=== PATIENT | female | born 1960 | race Caucasian/White ===

== ENCOUNTER 2021-11-20 12:26 | Day surgery (SDC) | payer OTHER, SELFPAY ==
--- NOTE | 2021-11-19 12:57 | HO.ANESPROP2 ---
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 Surgical History Surgical History (Updated 11/19/21 @ 12:54 by Pushpa Best RN) H/O colonoscopy H/O cone biopsy of cervix H/O dilation and curettage H/O tubal ligation History of delivery S/P breast lumpectomy Social History Social History Patient Tobacco Use Status: Former Tobacco user Quit Date: 2018 Tobacco use type: Cigarette Years Smoked: 30 Smoked in Last 30 Days: No Use of substances other than those prescribed or required for medical reasons: Yes Substance Use Frequency: Daily Are you DNR?: No Advance Directives: No Advance Directives Information Provided: Yes Meds Allergies Allergy/AdvReac Type Severity Reaction Status Date / Time No Known Allergies Allergy Verified 11/20/21 12:33 Home Medications Medication Instructions Recorded Confirmed Last Taken Type atorvastatin 10 mg tablet 1 tab PO DAILY 11/19/21 11/19/21 Unknown History clindamycin phosphate 1 % topical TOPICAL BID 11/19/21 11/19/21 Unknown History gel Exam Exam Date and Time: November 19, 2021 1257 Assessment and Plan Assessment Anesthesia Assessment: Chart Reviewed Documented by User: Jose Nair MD 11/20/21 15:06 [facility] Past Medical History Medical History (Updated 11/19/21 @ 12:50 by Pushpa Best RN) Anemia Benign neoplasm of colon Breast cancer, right COPD (chronic obstructive pulmonary disease) Glaucoma suspect Kidney stones 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 Family History Family history of problems with anesthesia: No Surgical History Surgical History (Updated 11/19/21 @ 12:54 by Pushpa Best RN) H/O colonoscopy H/O cone biopsy of cervix H/O dilation and curettage H/O tubal ligation History of delivery S/P breast lumpectomy History of Problems with Anesthesia: No Social History Social History Patient Tobacco Use Status: Former Tobacco user Quit Date: 2018 Tobacco use type: Cigarette Years Smoked: 30 Smoked in Last 30 Days: No Use of substances other than those prescribed or required for medical reasons: Yes Substance Use Frequency: Daily Are you DNR?: No Advance Directives: No Advance Directives Information Provided: Yes Meds Allergies Allergy/AdvReac Type Severity Reaction Status Date / Time No Known Allergies Allergy Verified 11/20/21 12:33 Home Medications Medication Instructions Recorded Confirmed Last Taken Type atorvastatin 10 mg tablet 1 tab PO DAILY 11/19/21 11/19/21 Unknown History clindamycin phosphate 1 % topical TOPICAL BID 11/19/21 11/19/21 Unknown History gel Exam Airway Mallampati Class: I TM Dist: >3cm Neck ROM: Full Loose/Missing/Broken Teeth: No Heart: ok Lungs: ok Assessment and Plan Final Anesthetic Review Family History of Problems with Anesthesia: No History of Problems with Anesthesia: No NPO: Yes ASA Class: II Final Preanesthetic Review: No Changes in Pt Med Stat, Meds/Allgs Chart Reviewed, Consent Obtained/Reviewed and Anes Risks/Benef Reviewed Patient Risk: Intermediate Procedure Risk: Intermediate Anesthetic Plan Anesthetic Plan: GA and Agree w/ Assess. and Plan Disposition: Standard PACU
[2021-11-20] VITALS (8 sets, daily range): BP systolic 121–145; BP diastolic 67–82; PULSE 71–91; RESP 16–20; TEMP 36.2–36.9; O2SAT 94–100; BMI 24.0
[2021-11-20] MEDS: Lactated Ringers 1,000 ML 100 ML IVCONT (13:10)
--- NOTE | 2021-11-20 14:34 | MHC.SHP ---
Pre-Procedural Eval Section A Date of Service: 11/20/21 The patient is an INPATIENT: No The History & Physical has been completed within 30 days and I have reviewed it.: Yes Section B Chief Complaint: abnormal lung findings Allergies: Allergies Allergy/AdvReac Type Severity Reaction Status Date / Time No Known Allergies Allergy Verified 11/20/21 12:33 Plan I have reviewed the history and physical and performed a pertinent physical examination on my patient. No changes have occurred unless specified. plan is for endobronchial ultrasound with biopsy of mediastinal lymph nodes for lung cancer staging
--- NOTE | 2021-11-20 15:53 | W.PM.OPN ---
Operative Note Operative Note Date of Service: 11/20/21 Narrative: Preoperative diagnosis: central left lower lobe pulmonary nodule Postoperative diagnosis: Same Operation: Endobronchial ultrasound with biopsy of multiple lymph node stations, bronchoscopy with bronchoalveolar lavage Surgeon: Magnolia Walsh MD Anesthesia: General Specimens: right paratracheal, subcarinal, and left paratrachealMediastinal lymph nodes , bronchoalveolar lavage left lower lobe EBL: less than 1 cc Operation in detail: The patient was brought to the operating room, placed supine on the operative table, anesthesia monitor devices were placed, and the patient was intubated with an 8 and half endotracheal tube. A time-out was performed confirming the correct patient, site, and procedure. The Olympus endobronchial ultrasound scope was then inserted through the endotracheal tube and the airways were visualized down to the subsegmental level bilaterally. Findings are there were no endobronchial lesions and no secretions. The ultrasound was then applied to all 3 stations visualizing the lymph nodes with the findings normal appearing less than 1 cm lymph nodes in all stations visualized. First, we visualized with ultrasound the subcarinal lymph nodes in using a 19 gauge Olympus biopsy needle 3 passes were taking and sent for on-site evaluation. This process was then repeated with right paratracheal and left paratracheal lymph nodes. Findings are adequate sampling at least 1 passed from each of these lymph nodes station no evidence of malignancy. final path pending. The bronchoscope was then switched out in the left lower lobe bronchus was visualized more closely down subsegmental a in the scope was wedged in the segmental bronchus medial basilar and 120 cc of saline washings were taken and sent for culture, fungus, AFB, and cytology. Hemostasis was then assured in the bronchoscope was removed. The patient tolerated the procedure well, was extubated in the operating room, and brought to the PACU in stable condition.
== END 2021-11-20 17:34 | disposition home or self-care (01) ==
PROVIDERS: PCP Pediatrics; Visit Provider Surgery
PROC: (CPT 31653; principal; 2021-11-20 14:10)
DX: R91.8 Other nonspecific abnormal finding of lung field (principal); J44.9 Chronic obstructive pulmonary disease, unspecified; D64.9 Anemia, unspecified; Z79.899 Other long term (current) drug therapy; Z85.3 Personal history of malignant neoplasm of breast; Z92.3 Personal history of irradiation; Z85.828 Personal history of other malignant neoplasm of skin; Z80.1 Family history of malignant neoplasm of trachea, bronchus and lung; Z80.3 Family history of malignant neoplasm of breast; Z87.891 Personal history of nicotine dependence; F12.90 Cannabis use, unspecified, uncomplicated
CPT/HCPCS: 31653; 31624; 87071; 87077; 87102; 87116; 87186; 87205; 88112; 88172; 88173; 88177; J0171; J0690; J1100; J2250; J2405; J3010